=== PATIENT | female | born 1950 | race Caucasian/White ===

== ENCOUNTER 2018-03-23 08:18 | Outpatient (CLI) | payer MEDICARE, BC ==
[~2018-03-23 08:18] MED LIST: AMLO10TA4 PO; ATOR20TA PO; BUDE180A INH; CELE200C PO; GABA300C PO; GABA300C10 PO; HYDR25TA6 PO; INSU100V8 SQ; IRON PO; LEFL20TA PO; LEVO50TA PO; METF500T PO; METF500T17 PO; METH4TAB PO; MONT10TA6 PO; NOVOLOG; OMEP-110 PO; OXYC-302 PO; OXYC1TAB7 PO; POTA10CA PO; PRINIVIL PO; PROVENTIL INH; RIVA20TA PO; SALM50DI INH; SITA100T PO; THEOPHYLLINE PO; TIOT18CA INH; TIZA4TAB9 PO; VENL150C PO; VERA120T5 PO; VITAMIN D PO; VITAMIN D2; XALATAN OP; ZOLP10TA PO
== END 2018-03-23 11:05 | disposition home or self-care (01) ==
LOC: OUT 08:18
PROVIDERS: ATTEND Otolaryngology
DX: Z02.9 Encounter for administrative examinations, unspecified (principal)

== ENCOUNTER 2018-03-25 10:52 | Day surgery (SDC) | payer MEDICARE, BC ==
[~2018-03-25] VITALS: Ht 167.6 cm; Wt 74.1 kg
[2018-03-25] MEDS ORDERED: LACTATED RINGERS 1,000 ML IV SCH (11:42)
[2018-03-25 11:49] VITALS: BP 119/81
[2018-03-25] MEDS ORDERED: ACETAMINOPHEN 500 MG TABLET PO ONE (12:00)
[2018-03-25] MEDS ORDERED: GABAPENTIN 300 MG CAPSULE PO ONE (12:00)
[2018-03-25] MEDS ORDERED: EPINEPHRINE TOPICAL SOLN 1 MG/ML, 30ML ONE (12:46)
[2018-03-25] MEDS ORDERED: OXYMETAZOLINE NASAL SPRAY 0.05%, 15ML ONE (12:46)
[2018-03-25] MEDS ORDERED: LIDOCAINE 1%-EPI 1:100K, 30ML ONE (12:46)
[2018-03-25] MEDS ORDERED: FLUORESCEIN SODIUM 500 MG/5 ML ONE (12:46)
[2018-03-25] MEDS ORDERED: BACITRACIN OINT 500U/GM, 15 GM ONE (12:46)
[2018-03-25] MEDS ORDERED: BACITRACIN 50,000 UNIT ONE (12:46)
[2018-03-25] MEDS ORDERED: FENTANYL PF 250 MCG/5ML ONE (13:06)
[2018-03-25] MEDS ORDERED: CLINDAMYCIN 150 MG/ML, 6ML ONE (13:09)
[2018-03-25 13:11] LABS: BASOPHILS # (AUTO) 0.07 x10^3/uL (0-0.1); BASOPHILS % (AUTO) 1 % (0-1); EOSINOPHILS # (AUTO) 0.19 x10^3/uL (0-0.4); EOSINOPHILS % (AUTO) 2 % (1-7); LYMPHOCYTES # (AUTO) 2.14 x10^3/uL (1-3.4); LYMPHOCYTES % (AUTO) 18 % (22-44); MD NO; MEAN CORPUSCULAR HEMOGLOBIN 28.8 pg (27.0-34.8); MEAN CORPUSCULAR VOLUME 90.1 fL (80-100); MONOCYTES # (AUTO) 1.15 x10^3/uL (0.2-0.8); MONOCYTES % (AUTO) 10 % (2-9); NEUTROPHILS # (AUTO) 8.35 x10^3/uL (1.8-6.8); NEUTROPHILS % (AUTO) 70 % (42-75); PLATELET COUNT 386 x10^3/uL (130-400); RED BLOOD COUNT 3.91 x10^6/uL (3.82-5.3); RED CELL DISTRIBUTION WIDTH 14.2 % (9.6-15.2)
[2018-03-25 13:20] LABS: INTERNATIONAL NORMALIZED RATIO 0.97 (0.93-1.1); PROTHROMBIN TIME 10.1 Seconds (9.6-11.5)
[2018-03-25] MEDS ORDERED: DIPHENHYDRAMINE 50 MG/ML, 1ML IVPush PRN (14:00)
[2018-03-25] MEDS ORDERED: MEPERIDINE/PF 25MG/0.5ML IVPush PRN (14:00)
[2018-03-25] MEDS ORDERED: LABETALOL 5MG/ML, 20ML IV PRN (14:00)
[2018-03-25] MEDS ORDERED: OXYcodone 5 MG/5 ML ORAL.SOL UDC PO PRN (14:00)
[2018-03-25] MEDS ORDERED: FENTANYL PF 100 MCG/2ML IV PRN (14:00)
[2018-03-25] MEDS ORDERED: HYDROmorphone 1 MG/ML, 1ML IV PRN (14:00)
[2018-03-25] MEDS ORDERED: hydrALAzine 20 MG/ML, 1ML IV PRN (14:00)
[2018-03-25] MEDS ORDERED: PROCHLORPERAZINE 5 MG/ML, 2ML IV PRN (14:00)
[2018-03-25] MEDS ORDERED: ALBUTEROL SULFATE 2.5 MG/3 ML NPPB PRN (14:00)
[2018-03-25] MEDS ORDERED: GLYCOPYRROLATE 0.2MG/1ML, 5ML ONE (14:11)
[2018-03-25] MEDS ORDERED: ONDANSETRON 2MG/ML, 2ML ONE (14:11)
[2018-03-25] MEDS ORDERED: SUCCINYLCHOLINE 20 MG/ML, 10ML ONE (14:11)
[2018-03-25] MEDS ORDERED: ROCURONIUM 10MG/ML,5ML ONE (14:11)
[2018-03-25] MEDS ORDERED: NEOSTIGMINE 1 MG/ML, 10ML ONE (14:11)
[2018-03-25] MEDS ORDERED: PROPOFOL 10 MG/ML, 20ML ONE (14:11)
[2018-03-25] MEDS ORDERED: DEXAMETHASONE 4 MG/ML, 1ML ONE (14:11)
[2018-03-25] MEDS ORDERED: CEFAZOLIN 1,000 MG ONE (14:11)
[2018-03-25] MEDS ORDERED: OXYcodone 5 MG/5 ML ORAL.SOL UDC ONE (14:49)
[2018-03-25] MEDS ORDERED: PHENYLEPHRINE 10 MG/ML ONE (15:14)
== END 2018-03-25 18:53 | disposition home or self-care (01) ==
LOC: OUT 10:52
PROVIDERS: ATTEND Otolaryngology
DX: J34.2 Deviated nasal septum (principal); J32.0 Chronic maxillary sinusitis; J32.2 Chronic ethmoidal sinusitis; Z79.899 Other long term (current) drug therapy; Z88.1 Allergy status to other antibiotic agents; Z88.5 Allergy status to narcotic agent; Z88.8 Allergy status to other drugs, medicaments and biological substances; Z72.89 Other problems related to lifestyle; Z79.01 Long term (current) use of anticoagulants
CPT/HCPCS: 30520; 31255; 31267; 61782; 82962; 85025; 85610; 85730; 87070; 87075; 87077; 87186; 87205; 88304; J0330; J0690; J1100; J2370; J2405; J2704; J2710; J3010; J3490; J7120